=== PATIENT | female | born 1950 | race Caucasian/White ===

== ENCOUNTER 2016-07-23 13:45 | Outpatient (RCR) | payer MEDICARE, BC | END 2016-09-27 | disposition still patient (30) | LOC: WSST | DX: J38.3 Other diseases of vocal cords (principal); R49.8 Other voice and resonance disorders | CPT/HCPCS: G9171-GN; G9172-GN ==

== ENCOUNTER → 2016-11-02 | Outpatient (REF) ==
[2016-11-02 16:18] LABS: THYROID STIMULATING HORMONE 1.74 uIU/mL (0.465-4.680)
== END ==
LOC: ZLAB.WCH 14:59
PROVIDERS: Nurse Practitioner Family
DX: Z01.89 Encounter for other specified special examinations (principal)

== ENCOUNTER → 2016-11-24 | Outpatient (CLI) | payer MEDICARE, BC | LOC: COL.RAD 06:30 | DX: K30 Functional dyspepsia (principal); K21.9 Gastro-esophageal reflux disease without esophagitis; R11.2 Nausea with vomiting, unspecified; R13.19 Other dysphagia; R10.84 Generalized abdominal pain | CPT/HCPCS: A9541 ==

== ENCOUNTER → 2016-12-07 | Outpatient (REF) ==
[2016-12-07 16:05] LABS: THYROID STIMULATING HORMONE 2.25 uIU/mL (0.465-4.680)
== END ==
LOC: ZLAB.WCH 14:56
PROVIDERS: Psychiatry & Neurology Neurology
DX: Z01.89 Encounter for other specified special examinations (principal)

== ENCOUNTER → 2016-12-29 | Outpatient (CLI) | payer MEDICARE, BC | LOC: COL.RAD 12:40 | DX: K22.5 Diverticulum of esophagus, acquired (principal); K21.9 Gastro-esophageal reflux disease without esophagitis; K44.9 Diaphragmatic hernia without obstruction or gangrene; Z98.890 Other specified postprocedural states ==

== ENCOUNTER → 2017-01-06 | Outpatient (REF) | LOC: ZLAB.WCH 06:55 | DX: Z01.89 Encounter for other specified special examinations (principal) ==

== ENCOUNTER → 2020-01-25 | Outpatient (CLI) | payer MEDICARE, BC | LOC: COL.CARD 12:55 | DX: R55 Syncope and collapse (principal) | CPT/HCPCS: A9585 ==

== ENCOUNTER 2020-04-07 15:12 | Emergency (ER) | payer MEDICARE, BC ==
[~2020-04-07] VITALS: Ht 165.1 cm; Wt 74.5 kg
[2020-04-07] MEDS ORDERED: SINGULAIR 110 MG/TAB PO (15:33)
[2020-04-07] MEDS ORDERED: FLEXERIL 1010 MG/TAB PO (15:34)
[2020-04-07] MEDS ORDERED: CARDIZEM CD 12120 MG PO (15:34)
[2020-04-07] MEDS ORDERED: COZAAR100 MG PO (15:35)
[2020-04-07] MEDS ORDERED: GLUCOTROL10 MG PO (15:36)
[2020-04-07] MEDS ORDERED: ZOLOFT 50MG50 MG PO (15:37)
[2020-04-07] MEDS ORDERED: PRIL40 PO (15:37)
[2020-04-07 16:24] LABS: ALBUMIN 4.2 gm/dL (3.5-5.0); BILIRUBIN,TOTAL 0.4 mg/dL (0.0-1.0); C-REACTIVE PROTEIN 1.9 mg/dL (0.0-0.9); CALCIUM 9.4 mg/dL (8.4-10.2); CREATININE, serum 0.84 (0.52-1.25); POTASSIUM 4.3 mmol/L (3.4-5.0); TOTAL PROTEIN 7.3 gm/dL (6.4-8.2)
[2020-04-07 17:16] LABS: BASO % 0.4 % (0.0-2.0); GRAN # 4.5 (1.4-6.5); GRAN % 63.4 % (42.2-75.2); HEMATOCRIT 45.4 % (37.0-47.0); LYMPH % 28.3 % (20.0-51.0); MEAN CELL VOLUME 87 fl (80.0-100.0); MEAN CORPUSCULAR HEMOGLOBIN 29 pg (27.0-31.0); MEAN CORPUSCULAR HGB CONC 33 g/dl (33.0-37.0); MONO # 0.5 (0.1-0.6); MONO % 7.6 % (1.7-9.3); PLATELET COUNT 223 K/mm3 (130-400); RED BLOOD COUNT 5.21 M/mm3 (4.10-5.30); REDCELL DISTRIBUTION WIDTH-CV 13.3 % (11.5-14.5)
[2020-04-07 17:36] LABS: ERYTHROCYTE SEDIMENTATION RATE 7 mm/hr (0-30)
[2020-04-07] MEDS ORDERED: ZOFRAN 4MG T4 MG/TAB PO (17:53)
[2020-04-07 18:07] VITALS: BP 136/77; PULSE 75; TEMP 98.6
== END 2020-04-07 18:15 | disposition home or self-care (01) ==
LOC: COL.ER 15:12
PROVIDERS: Emergency Medicine
DX: R51 Headache (principal); G89.29 Other chronic pain; E11.9 Type 2 diabetes mellitus without complications; E11.42 Type 2 diabetes mellitus with diabetic polyneuropathy; Z86.69 Personal history of other diseases of the nervous system and sense organs; Z79.84 Long term (current) use of oral hypoglycemic drugs
CPT/HCPCS: J0780; J1200; J7030

== ENCOUNTER → 2020-05-01 | Outpatient (CLI) | payer MEDICARE, BC ==
[~2020-05-01] MED LIST: CARDIZEM CD 12120 MG PO; COZAAR100 MG PO; FLEXERIL 1010 MG/TAB PO; GLUCOTROL10 MG PO; PRIL40 PO; SINGULAIR 110 MG/TAB PO; ZOFRAN 4MG T4 MG/TAB PO; ZOLOFT 50MG50 MG PO
== END ==
LOC: COL.RAD 14:16
DX: Z01.812 Encounter for preprocedural laboratory examination (principal); S06.9X9S Unspecified intracranial injury with loss of consciousness of unspecified duration, sequela; E11.42 Type 2 diabetes mellitus with diabetic polyneuropathy; R41.89 Other symptoms and signs involving cognitive functions and awareness; M54.2 Cervicalgia
CPT/HCPCS: Q9967

== ENCOUNTER → 2020-10-09 | Outpatient (CLI) | payer MEDICARE, BC | LOC: DIA.ED 07:41 | DX: E11.40 Type 2 diabetes mellitus with diabetic neuropathy, unspecified (principal); E78.5 Hyperlipidemia, unspecified; I10 Essential (primary) hypertension; E66.8 Other obesity ==

== ENCOUNTER → 2020-10-21 | Outpatient (CLI) | payer MEDICARE, BC | LOC: DIA.ED 08:46 | DX: E11.40 Type 2 diabetes mellitus with diabetic neuropathy, unspecified (principal); Z79.84 Long term (current) use of oral hypoglycemic drugs; I10 Essential (primary) hypertension; E78.5 Hyperlipidemia, unspecified ==

== ENCOUNTER → 2022-10-08 | Outpatient (CLI) | payer MEDICARE | LOC: MHCPAIN 10:16 | DX: M54.81 Occipital neuralgia (principal); G43.709 Chronic migraine without aura, not intractable, without status migrainosus | CPT/HCPCS: G0463 ==

== ENCOUNTER → 2022-11-11 | Outpatient (CLI) | payer MEDICARE | LOC: MHCPAIN 13:38 | DX: G43.709 Chronic migraine without aura, not intractable, without status migrainosus (principal); M54.81 Occipital neuralgia | CPT/HCPCS: G0463 ==

== ENCOUNTER → 2023-06-03 | Outpatient (CLI) | payer MEDICARE | LOC: MHCPAIN 14:50 | DX: G43.709 Chronic migraine without aura, not intractable, without status migrainosus (principal); R42 Dizziness and giddiness | CPT/HCPCS: G0463 ==

== ENCOUNTER → 2023-08-26 | Outpatient (CLI) | payer MEDICARE | LOC: MHCPAIN 13:55 | DX: G43.709 Chronic migraine without aura, not intractable, without status migrainosus (principal) | CPT/HCPCS: G0463 ==

== ENCOUNTER → 2023-12-20 | Outpatient (CLI) | payer MEDICARE ==
[~2023-12-20] MED LIST changes: +Lidocaine PF 1% (10 MG/ML) 5 ML VIAL ONE; +NS 0 ML IV ONE; +Triamcinolone 40 MG/ML 1 ML VIAL ONE
== END ==
LOC: MHCPAIN 10:58
DX: M54.50 Low back pain, unspecified (principal); M54.32 Sciatica, left side; M79.18 Myalgia, other site; G62.9 Polyneuropathy, unspecified; G43.709 Chronic migraine without aura, not intractable, without status migrainosus
CPT/HCPCS: G0463; J0585; J3301

== ENCOUNTER 2024-08-08 09:13 | Outpatient (RCR) | payer MEDICARE ==
[~2024-08-08 09:13] MED LIST changes: +ANTIVERT 25MG25 MG PO; +CLARITIN 1010 MG/TAB PO; +FLONASE NASAL S16 GM NS; +GLUCOTROL 5M5 MG/TAB PO; +KLONOPIN 0.5MG0.5 MG PO; +LIPITOR20 MG PO; -Lidocaine PF 1% (10 MG/ML) 5 ML VIAL ONE; +MULTIVITAMIN FO1 CAP PO; +NEURONTIN300 MG/CAP PO; -NS 0 ML IV ONE; +PEPCID 20MG TAB20 MG PO; +PROAIR HFA0.09 MG/AC IH; +RT ALBUTER2.5 MG/0.5 IH; +TRULICITY1.5 MG/0.5 SQ; +TYLENOL 500MG500 MG PO; -Triamcinolone 40 MG/ML 1 ML VIAL ONE
== END 2024-08-12 | disposition home or self-care (01) ==
LOC: WSST
DX: R13.10 Dysphagia, unspecified (principal)